=== PATIENT | male | born 1985 | race Two or more races ===

== ENCOUNTER 2024-10-31 15:56 | Emergency (ER) | payer MEDICAID, SELFPAY ==
[2024-10-31 16:11] VITALS: BP 143/101; PULSE 104; RESP 20; TEMP 36.7; O2SAT 98
--- NOTE | 2024-10-31 16:12 | XR_ITS ---
Examination: CT abdomen and pelvis without contrast. Coronal 3-D reconstructions. Sagittal 2-D reconstructions. Date and time of exam:October 31, 2024, 1903 hours INDICATIONS: Left-sided abdominal pain radiating to the flank today CTDI: vol (mGy): 7.41 DLP: (mGycm): 454 Technique: Axial images of the abdomen have been obtained, 3 mm slice thickness Intravenous contrast material has not been administered. Low dose protocols were performed. One or more of the following dose reduction techniques were used; automated exposure control, adjustment of the mA and/or KV according to patient size, use of iterative reconstruction technique. Findings: 2 mm pulmonary nodule left lower lobe image 87 3 mm pulmonary nodule left lower lobe image 40 2 mm pulmonary nodule right middle lobe image 2 No visualized liver or splenic lesion No gallstones No pancreatic or adrenal mass No renal or ureteral calculi, no hydronephrosis Normal appendix Aorta normal size No bowel obstruction No diverticulitis Normal seminal vesicles Normal prostate No bladder mass or bladder calculi Fat-containing left inguinal hernia Intact osseous structures IMPRESSION: Tiny pulmonary nodules as above, likely postinfectious Negative for pancreatitis No renal or ureteral calculi, no hydronephrosis Normal appendix. No bowel obstruction or diverticulitis. No bladder mass or bladder calculi
--- NOTE | 2024-10-31 16:12 | XR_ITS ---
Examination: PA chest single view TECHNIQUE: Upright PA chest single view Date and time: October 31, 2024 1633 hours INDICATIONS: Chest pain shortness of breath today. FINDINGS: Normal heart size Lungs are clear with minor atelectasis left base The osseous structures are intact IMPRESSION: No pneumonia or pulmonary edema
--- NOTE | 2024-10-31 16:14 | PD.EDCHEST ---
ED Chest Pain RME/HPI General Chief Complaint: Chest Pain Stated Complaint: CHEST PAIN, SOB Time Seen by Provider: 10/31/24 16:05 Arrival date/time: 10/31/24 15:56 this is a case of 39-year-old male with no medical history coming in the emergency room with on and off chest pain for 1 month Was seen by PCP test was done and normal worsening of the pain now with abdominal pain nausea vomiting palpitation and shortness of breath thus decided to sought consult here in the emergency room patient denies any diarrhea constipation or blood in stool Limitations: no limitations Related Data Previous Rx's ?Medication ?Instructions ?Recorded famotidine 40 mg tablet 40 mg PO BID 30 days #60 tabs 10/31/24 omeprazole 40 mg capsule,delayed 40 mg PO QDAY 30 days #30 caps 10/31/24 release ondansetron 4 mg disintegrating 4 mg PO Q8H PRN nausea and 10/31/24 tablet vomiting #20 tabs Allergies Allergy/AdvReac Type Severity Reaction Status Date / Time No Known Allergies Allergy Verified 10/31/24 15:59 Review of Systems Review of Systems Systems Reviewed: All systems reviewed, normal except as documented Constitutional Constitutional: Reports system reviewed and no additional complaints, except as documented, Denies chills and Denies fever(s) Cardiovascular Cardiovascular: Reports system reviewed and no additional complaints, except as documented, Reports as per HPI, Denies acrocyanosis, Reports chest pain, Denies chest pain at rest, Denies chest pain with activity, Denies claudication, Denies diaphoresis, Reports dyspnea, Denies dyspnea on exertion, Denies edema, Denies irregular heart rhythm, Denies leg edema, Denies leg ulcers, Denies lightheadedness, Denies orthopnea, Denies palpitations, Denies paroxysmal nocturnal dyspnea, Denies pedal edema, Denies radiating jaw, neck or arm pain, Reports rapid heart rate, Denies slow heart rate and Denies syncope Respiratory Respiratory: Reports system reviewed and no additional complaints, except as documented, Reports as per HPI, Reports dyspnea and Denies dyspnea on exertion Gastrointestinal Gastrointestinal: Reports system reviewed and no additional complaints, except as documented, Reports abdominal pain, Denies diarrhea, Reports nausea and Reports vomiting Genitourinary Genitourinary: Reports system reviewed and no additional complaints, except as documented and Reports as per HPI Musculoskeletal Musculoskeletal: Reports system reviewed and no additional complaints, except as documented and Reports as per HPI Neurologic Neurologic: Reports system reviewed and no additional complaints, except as documented, Reports as per HPI and Denies syncope Endocrine Endocrine: Denies palpitations Past Medical History Social History SMOKING STATUS: Never smoker ED Exam General Limitations: Present no limitations General appearance: Present alert, in no apparent distress and other (Patient is awake alert oriented not in distress nontoxic looking well-hydrated well-nourished) Head Head exam: Present atraumatic, normocephalic and normal inspection Eye Eye exam: Present normal appearance, PERRL and EOMI ENT ENT exam: Present normal exam, normal oropharynx and mucous membranes moist Neck Neck exam: Present normal inspection, full ROM and trachea midline Chest Chest inspection: Present normal inspection and symmetric chest wall rise; Absent tenderness or rash Respiratory Respiratory exam: Present normal lung sounds bilaterally; Absent respiratory distress, wheezes, stridor, accessory muscle use or prolonged expiratory phase Cardiovascular Cardiovascular exam: Present regular rate, normal rhythm and normal heart sounds; Absent bradycardia, tachycardia, irregular rhythm, systolic murmur or diastolic murmur Abdominal Exam Abdominal exam: Present soft, tenderness (Mild tenderness left upper and left lower quadrant no CVA tenderness) and normal bowel sounds; Absent distention, guarding, rebound, rigidity, diminished bowel sounds, hyperactive bowel sounds, hypoactive bowel sounds, organomegaly, psoas sign, obturator sign, Guerrero's sign, Rovsing's sign, tenderness at McBurney's Point or ascites Extremities Exam Extremities exam: Present normal inspection and full ROM Back Exam Back exam: Present normal inspection and full ROM Neurological Exam Neurological exam: Present alert, oriented X3, CN II-XII intact, normal gait and reflexes normal; Absent motor sensory deficit Psychiatric Psychiatric exam: Present normal affect and normal mood Skin Skin exam: Present warm, dry, intact and normal color Course Quality Measures none Orders Category Date Time Status EKG (ED ONLY) *Do not use* NOW Care 10/31/24 16:[address] abdomen pelvis wo con Stat Exams 10/31/24 16:12 Completed EKG (ED Only) Stat Exams 10/31/24 16:07 Ordered XR chest 1V portable Stat Exams 10/31/24 16:12 Completed BNP [B-Type Natriuretic Peptide] Stat Lab 10/31/24 16:19 Completed CBC Stat Lab 10/31/24 16:19 Completed CMP [Comprehensive Metabolic Panel] Stat Lab 10/31/24 16:19 Completed D-Dimer Stat Lab 10/31/24 16:19 Completed Lipase Stat Lab 10/31/24 16:19 Completed Troponin I Stat Lab 10/31/24 16:19 Completed Urinalysis Stat Lab 10/31/24 17:04 Completed Famotidine [Pepcid] Med 10/31/24 19:39 Discontinued 40 mg PO X1 ONE Lidocaine 2% Viscous [Xylocaine 2% Viscous] Med 10/31/24 19:39 Discontinued 15 ml PO X1 ONE Ondansetron Odt [Zofran Odt] Med 10/31/24 19:39 Discontinued 4 mg PO X1 ONE mg Hyd/Al Hyd/Shae Susp [Maalox Susp] Med 10/31/24 19:39 Discontinued 30 ml PO X1 ONE Vital Signs Vital signs: Vital Signs Temperature 98.1 F 10/31/24 16:11 Pulse Rate 104 H 10/31/24 16:11 Respiratory Rate 20 10/31/24 16:11 Blood Pressure 143/101 H 10/31/24 16:11 Pulse Oximetry (%) 98 10/31/24 16:11 Oxygen Delivery Method Room Air 10/31/24 16:11 Patient is afebrile slight tachycardic respiratory rate is 20 not tachypneic BP stable not hypoxic oxygen saturation is 98% Chest Pain MDM Narrative MDM Narrative:: this is a case of 39-year-old male with no medical history coming in the emergency room with on and off chest pain for 1 month Was seen by PCP test was done and normal worsening of the pain now with abdominal pain nausea vomiting palpitation and shortness of breath thus decided to sought consult here in the emergency room patient denies any diarrhea constipation or blood in stool physical examination patient is awake alert oriented not in distress nontoxic looking lung sound is clear no crackles no rales no retraction no stridor heart normal rate regular rhythm no murmur abdominal exam noted mild tenderness on the left upper and left lower quadrant no guarding no rebound no rigidity negative psoas negative straight or negative Rovsing's negative McBurney's negative Guerrero sign negative CVA tenderness patient blood test showed no leukocytosis no anemia kidney and liver function is normal no electrolyte imbalance patient lipase is normal urinalysis is normal patient EKG showed sinus rhythm no ST or T wave abnormality ventricular rate is 84 chest x-ray is normal CT scan of the abdomen showed pulmonary nodule and inguinal hernia at this point patient was treated as gastritis patient was given Zofran and GI cocktail patient was reassessed after 1 hour patient abdominal pain is resolved no recurrence of vomiting patient abdominal exam is benign nonsurgical nontender no guarding no rebound no rigidity at this point I have a long discussion with the patient patient needs to see a 3 specialist patient was advised to see PCP to be referred to camp guard for chest pain for possible echocardiogram stress test and Holter monitor should he also need to see a rag washer for gastritis for possible EGD and hot plate plywood press offbearer for pulmonary nodule to rule out malignancy for any worsening symptoms or any emergent concern he will return the emergency room immediately or call 911 he was prescribed with Zofran for vomiting omeprazole and Pepcid for gastritis patient understood very well the discharge instruction at the time of exam there is no signs and symptoms of cardiopulmonary pathology Patient was discharged with comfortable condition walking with stable gait. Patient verbalized no further complains explained diagnosis and answered patient question. Patient is comfortable with the proposed management plan including the need to follow up with his/her primary care physician and any specialist if applicable Discussed patient for any urgent condition or worsening sx, He/She needed to go to emergency room immediately or call 911. Patient acknowledge the responsibility to follow up as instructed and to monitor her/his symptoms. For any persistence of the symptoms for more than 3-5 days return precaution advised. Discussed the result of the test and was given printed discharge instruction Patient data External records reviewed:: [facility] previous records Clinical information provided by:: patient and family Social determinants that could affect healthcare access:: none Patient has the following chronic illnesses:: None How is presenting disease/condition affected by chronic disease/condition?: no chronic disease Evaluation data The following diagnostics were reviewed and interpreted by me:: lab results and radiology exam(s) Lab and/or radiology exams considered but not ordered:: Reviewed Interpretation Summary: Reviewed Medications / Prescriptions Medications or Prescriptions considered but not ordered:: Given Medication administrations:: Medication Administration History Discontinued Medications Al Hydrox/Mg Hydrox/Simethicone (Mg Hyd/Al Hyd/Shae (Maalox Reg) Susp 30 Ml Udc) 30 ml PO X1 ONE Stop: 10/31/24 19:40 Famotidine (Famotidine 20 Mg Tablet) 40 mg PO X1 ONE Stop: 10/31/24 19:40 Lidocaine HCl (Lidocaine Viscous 2% 15 Ml Udc) 15 ml PO X1 ONE Stop: 10/31/24 19:40 Ondansetron HCl (Ondansetron Odt 4 Mg Tabrap) 4 mg PO X1 ONE; Protocol Stop: 10/31/24 19:40 Given Consultations Consultation(s) initiated? (list below): No Diagnosis Chest Pain Differential Diagnosis: atypical chest pain, costochondritis, chest pain and other (Gastritis) Most likely diagnosis given after review of the tests above:: Chest pain of unknown etiology gastritis Admission Indicated Admission indicated?: not indicated Explain why admission is indicated or not indicated:: Not indicated Admission Request Was there a request for admission?: No Admission Attestation Admission request attestation: Not indicated Disposition Plan Disposition Plan: Discharge Discharge Attestation Discharge Attestation: The patient and all family members were given an opportunity to ask questions and understood the discharge instructions. Discharge instructions specifically effects, indications for sooner follow up or return to the emergency department, and the expected course of current diagnosis. Patient condition: Stable Discharge Plan Plan Patient Disposition: HOME (Self Care) Patient condition on transfer: Stable Prescriptions/Referrals Prescriptions/Med Rec: New famotidine 40 mg tablet 40 mg PO BID 30 Days Qty: 60 0RF ondansetron 4 mg tablet,disintegrating 4 mg PO Q8H PRN (Reason: nausea and vomiting) Qty: 20 0RF omeprazole 40 mg capsule,delayed release(DR/EC) 40 mg PO QDAY 30 Days Qty: 30 0RF Referrals: No Primary/Family,Physician [Primary Care Provider] - In 1 week Problem List Clinical Impression: Chest pain of unknown etiology, Gastritis, Abdominal pain, Pulmonary nodule Patient/Caregiver Discharge Instructions Education Materials: Abdominal Pain, ED Chest Pain, Noncardiac, ED Gastritis (Adult), ED Pulmonary Nodule, Solitary Additional Instructions: Follow-up with your primary care physician in 2 days for reevaluation and to be referred to camp guard for further evaluation and treatment of chest pain for possible echocardiogram stress test and Holter monitor you need to be referred also with Temperature Inspector for gastritis for possible EGD and hot plate plywood press offbearer for your pulmonary nodule to rule out malignancy for any recurrence persistent worsening symptoms or any emergent concern return to the emergency room immediately or call 911 take your medication as directed avoid skipping of meals avoid fatty fried high cholesterol foods avoid spicy food avoid soda coffee or coffee or alcohol keep hydrated take your medication as directed Print Language: Romansh Stand Alone Forms: Darlin Award Info., Patient Portal Info Letter PA/IS SUPPORT ANALYST Supervising Physician PA/IS SUPPORT ANALYST Supervising Physician: Dr howell
[2024-10-31 17:09] LABS: B-Type Natriuretic Peptide < 20 pg/mL (0-100)
[2024-10-31 17:16] LABS: Collection Type, Urine Voided; Squamous Epithelial Cell,Urine 0 /hpf (0-5)
[2024-10-31 17:23] LABS: Alanine Aminotransferase 65 U/L (10-49); Albumin, Serum 5.0 gm/dL (3.5-5.0); Albumin/Globulin Ratio 1.6 (1.2-2.2); Alkaline Phosphatase 50 U/L (46-116); Anion Gap 13 (7-16); Aspartate Amino Transferase 49 U/L (0-34); BUN/Creatinine Ratio 5 Ratio (12-20); Bilirubin,Total 0.9 mg/dL (0.3-1.2); Blood Urea Nitrogen < 5 mg/dL (9-23); Calcium 9.5 mg/dL (8.3-10.6); Calcium (Corrected) 9.5 mg/dL (8.5-10.1); Carbon Dioxide 20.7 mMol/L (20.0-31.0); Chloride 105 mMol/L (98-107); Creatinine (Component) 1.0 mg/dL (0.6-1.3); Globulin 3.1 gm/dL (2.3-3.5); Glucose 140 mg/dL (74-106); Lipase 70 U/L (12-53); Osmolality,Calculated 276 (275-295); Potassium 4.5 mMol/L (3.4-5.1); Sodium 139 mMol/L (136-145); Total Protein 8.1 gm/dL (5.7-8.2); Troponin I < 0.020 ng/mL (0.0-0.045); eGFR > 60 See Note
[2024-10-31 17:30] LABS: Bilirubin,Urine Negative (Negative); Blood,Urine Negative (Negative); Clarity,Urine Clear (Clear/Hazy); Color,Urine Yellow (Lt Yel-Yel); Glucose, Urine Negative (Negative); Ketones,Urine Negative (Negative); Leukocyte Esterase,Urine Negative (Negative); Nitrite,Urine Negative (Negative); PH,Urine 7.0 (5.0-7.0); Protein,Urine Negative (Neg - Trace); RBC,Urine 2 /hpf (0-3); Specific Gravity,Urine 1.024 (1.001-1.035); Urobilinogen,Urine Negative mg/dL (0.0-1.0); WBC,Urine < 1 /hpf (0-5)
[2024-10-31 17:39] LABS: Basophils # (Auto) 0.0 Thou/mm3 (0.0-0.2); Basophils % (Auto) 1 % (0-2.5); Eosinophils # (Auto) 0.2 Thou/mm3 (0.0-0.5); Eosinophils % (Auto) 3 % (0-10); Hematocrit 45.8 % (41.0-53.0); Hemoglobin 16.4 g/dL (13.5-16.0); Immature Granulocytes Auto 0.02 Thou/mm3 (0.00-0.00); Lymphocytes # (Auto) 2.0 Thou/mm3 (1.0-4.8); Lymphocytes % (Auto) 28 % (10-50); Mean Corpuscular HGB Conc 35.8 g/dl (31.0-37.0); Mean Corpuscular Hemoglobin 30.4 pg (25.0-35.0); Mean Corpuscular Volume 85 fL (80-100); Monocytes # (Auto) 0.6 Thou/mm3 (0.0-0.8); Monocytes % (Auto) 8 % (0-12); Neutrophils # (Auto) 4.3 Thou/mm3 (1.8-7.7); Neutrophils % (Auto) 60 % (37-80); Nucleated Red Blood Cell # 0.00 Thou/mm3 (0.00-0.00); Nucleated Red Blood Cell % 0 /100 WBC (0); Platelet Count 141 Thou/mm3 (140-440); RDW Standard Deviation 40.4 fL (35.1-43.9); Red Blood Count 5.40 Miln/mm3 (4.50-5.90); White Blood Count 7.2 Thou/mm3 (3.8-10.6)
[2024-10-31 17:52] VITALS: BP 136/92; PULSE 90; RESP 18; TEMP 36.6; O2SAT 96
[2024-10-31 17:57] LABS: D-Dimer < 250 ng/mL (<600)
[2024-10-31] MEDS: ONDANSETRON ODT 4 MG TABRAP PO (19:56)
[2024-10-31] MEDS: FAMOTIDINE 20 MG TABLET 40 MG PO (19:56)
[2024-10-31] MEDS: MG HYD/AL HYD/SIME (Maalox Reg) SUSP 30 ML UDC PO (19:57)
[2024-10-31] MEDS: LIDOCAINE VISCOUS 2% 15 ML UDC PO (19:57)
[2024-10-31 20:08] VITALS: BP 128/77; PULSE 78; RESP 18; TEMP 36.7; O2SAT 100
== END 2024-10-31 20:09 | disposition home or self-care (01) ==
PROVIDERS: Nurse Practitioner Family; Emergency Provider Emergency Medicine
DX: K29.70 Gastritis, unspecified, without bleeding (principal); R91.1 Solitary pulmonary nodule; R94.31 Abnormal electrocardiogram [ECG] [EKG]
CPT/HCPCS: 36415; 71045; 74176; 80053; 81001; 83690; 83880; 84484; 85025; 85379; 93005; 99284; J3490; Q0162; A9270

== ENCOUNTER 2024-11-22 21:08 | Emergency (ER) | payer MEDICAID, SELFPAY ==
[2024-11-22 21:09] VITALS: BMI 29.0
--- NOTE | 2024-11-22 21:13 | XR_ITS ---
Examination: PA lateral chest 2 views TECHNIQUE: Upright PA lateral chest 2 views Date and time: November 22, 2024 2123 hours INDICATIONS: Coughing and shortness of breath beginning 2 days ago FINDINGS: Normal heart size. The lungs are clear. The osseous structures are intact IMPRESSION: No active disease.
[2024-11-22 21:42] VITALS: BP 150/96; PULSE 83; RESP 20; TEMP 37.6; O2SAT 96
--- NOTE | 2024-11-22 22:04 | EKG_ITS ---
[facility] Test Date: 2024-11-22 Pat Name: JUDSON ZAZUETA Department: Room: - Gender: Male Set Builder: : 1985 Requested By: Ashsih Bae Order Number: [id number] Reading MD: Ashish Bae Measurements Intervals [place] Rate: 90 P: 24 CT: 146 QRS: 9 QRSD: 100 T: 16 QT: 347 QTc: 425 Interpretive Statements SINUS RHYTHM MODERATE VOLTAGE CRITERIA FOR LVH, CONSIDER NORMAL VARIANT [MEETS CRITERIA IN ONE OF: R(aVL), S(V1), R(V5), R(V5/V6)+S(V1)] NONSPECIFIC ST ELEVATION [0.05+ mV ST ELEVATION] No previous ECG available for comparison /store/S0/[id number].pdf
--- NOTE | 2024-11-22 22:23 | EDNOTE_ITS ---
ED Anxiety RME/HPI General Chief Complaint: Shortness of Breath/Dyspnea Stated Complaint: SOB COUGH Time Seen by Provider: 11/22/24 22:04 Arrival date/time: 11/22/24 21:08 39M with history of alcohol and drug use (cocaine several days ago) presents to ED with several weeks of CP, SOB, and cough. Limitations: no limitations Related Data Previous Rx's ?Medication ?Instructions ?Recorded famotidine 40 mg tablet 40 mg PO BID 30 days #60 tab s 10/31/24 omeprazole 40 mg capsule,delayed 40 mg PO QDAY 30 days #30 caps 10/31/24 release ondansetron 4 mg disintegrating 4 mg PO Q8H PRN nausea and 10/31/24 tablet vomiting #20 tabs Allergies Allergy/AdvReac Type Severity Reaction Status Date / Time No Known Allergies Allergy Verified 10/31/24 15:59 Review of Systems Review of Systems Systems Reviewed: All systems reviewed, normal except as documented Constitutional Constitutional: Reports system reviewed and no additional complaints, except as documented, Denies fever(s) and Denies headache(s) ENT Ears, Nose, Mouth, and Throat: Denies disequilibrium and Denies headache(s) Cardiovascular Cardiovascular: Reports system reviewed and no additional complaints, except as documented, Reports as per HPI, Reports chest pain and Reports dyspnea Respiratory Respiratory: Reports system reviewed and no additional complaints, except as documented, Reports as per HPI, Reports cough and Reports dyspnea Gastrointestinal Gastrointestinal: Reports system reviewed and no additional complaints, except as documented, Denies abdominal pain, Denies nausea and Denies vomiting Neurologic Neurologic: Reports system reviewed and no additional complaints, except as documented, Denies confusion, Denies disequilibrium and Denies headache(s) Psychiatric Psychiatric: Denies confusion Past Medical History Social History SMOKING STATUS: Current every day smoker ED Exam General Limitations: Present no limitations General appearance: Present alert and anxious Head Head exam: Present atraumatic Eye Eye exam: Present normal appearance, PERRL and EOMI ENT ENT exam: Present normal exam, normal oropharynx and mucous membranes moist Neck Neck exam: Present normal inspection, full ROM and trachea midline Chest Chest inspection: Present normal inspection and symmetric chest wall rise Respiratory Respiratory exam: Present normal lung sounds bilaterally Cardiovascular Cardiovascular exam: Present regular rate, normal rhythm and normal heart sounds Abdominal Exam Abdominal exam: Present soft and normal bowel sounds Extremities Exam Extremities exam: Present normal inspection and full ROM Back Exam Back exam: Present normal inspection and full ROM Neurological Exam Neurological exam: Present alert, oriented X3 and CN II-XII intact Psychiatric Psychiatric exam: Present normal affect and normal mood Skin Skin exam: Present warm, dry, intact and normal color Course Quality Measures none Orders Category Date Time Status EKG (ED ONLY) *Do not use* NOW Care 11/22/24 22:04 Completed EKG (ED Only) Stat Exams 11/22/24 22:04 Draft XR chest 2V Stat Exams 11/22/24 21:13 Completed Alcohol, Blood Medical Stat Lab 11/22/24 22:04 Ordered CBC Stat Lab 11/22/24 22:04 Ordered CMP [Comprehensive Metabolic Panel] Stat Lab 11/22/24 22:04 Ordered D-Dimer Stat Lab 11/22/24 22:04 Ordered Drug Screen,Urine Stat Lab 11/22/24 22:04 Ordered Troponin I Stat Lab 11/22/24 22:04 Ordered Vital Signs Vital signs: Vital Signs Temperature 99.6 F 11/22/24 21:42 Pulse Rate 83 11/22/24 21:42 Respiratory Rate 20 11/22/24 21:42 Blood Pressure 150/96 H 11/22/24 21:42 Pulse Oximetry (%) 96 11/22/24 21:42 Oxygen Delivery Method Room Air 11/22/24 21:42 Anxiety MDM Narrative MDM Narrative: 39M with history of alcohol and drug use (cocaine several days ago) presents to ED with several weeks of CP, SOB, and cough. Physical exam reveals normal WOB. Patient is afebrile, alert, but very anxious. CXR is unremarkable. EKG is NSR with LVH. Trop and D-dimer normal. Cocaine+. Patient data External records reviewed:: [facility] previous records Clinical information provided by:: patient Social determinants that could affect healthcare access:: substance use Patient has the following chronic illnesses:: alcohol/drugs How is presenting disease/condition affected by chronic disease/condition?: exacerbated by Evaluation data The following diagnostics were reviewed and interpreted by me:: lab results, radiology exam(s) and EKG tracing(s) Lab and/or radiology exams considered but not ordered:: ordered Interpretation Summary: above Medications / Prescriptions Medications or Prescriptions considered but not ordered:: not ordered Medication administrations:: n/a Consultations Consultation(s) initiated? (list below): No Diagnosis Differential diagnosis anxiety: hyperventilation, panic disorder, acute anxiety and other (ACS, PE) Most likely diagnosis given after review of the tests above:: cocaine use, anxiety Admission Indicated Admission indicated?: not indicated Admission Request Was there a request for admission?: No Disposition Plan Disposition Plan: Discharge Discharge Attestation Discharge Attestation: The patient and all family members were given an opportunity to ask questions and understood the discharge instructions. Discharge instructions specifically effects, indications for sooner follow up or return to the emergency department, and the expected course of current diagnosis. Patient condition: Stable Discharge Plan Plan Patient Disposition: HOME (Self Care) Discharge Disposition comment: STable Prescriptions/Referrals Prescriptions/Med Rec: No Action famotidine 40 mg tablet 40 mg PO BID 30 Days Qty: 60 0RF ondansetron 4 mg tablet,disintegrating 4 mg PO Q8H PRN (Reason: nausea and vomiting) Qty: 20 0RF omeprazole 40 mg capsule,delayed release(DR/EC) 40 mg PO QDAY 30 Days Qty: 30 0RF Referrals: No Primary/Family,Physician [Primary Care Provider] - In 1 week Problem List Clinical Impression: Cocaine use, Anxiety Patient/Caregiver Discharge Instructions Education Materials: Your Body's Response to Anxiety, ED Cocaine And Crack Abuse Additional Instructions: Please follow-up with PCP within 24-48 hours and return immediately if symptoms worsen. Stop using drugs. Print Language: Eritrean Stand Alone Forms: Patient Portal Info Letter RAMON/JESSE Supervising Physician RAMON/JESSE Supervising Physician: Dr. Sanders
[2024-11-22 22:30] LABS: Basophils # (Auto) 0.1 Thou/mm3 (0.0-0.2); Basophils % (Auto) 1 % (0-2.5); Eosinophils # (Auto) 0.2 Thou/mm3 (0.0-0.5); Eosinophils % (Auto) 3 % (0-10); Hematocrit 45.1 % (41.0-53.0); Hemoglobin 15.5 g/dL (13.5-16.0); Immature Granulocytes Auto 0.02 Thou/mm3 (0.00-0.00); Lymphocytes # (Auto) 1.7 Thou/mm3 (1.0-4.8); Lymphocytes % (Auto) 24 % (10-50); Mean Corpuscular HGB Conc 34.4 g/dl (31.0-37.0); Mean Corpuscular Hemoglobin 29.9 pg (25.0-35.0); Mean Corpuscular Volume 87 fL (80-100); Monocytes # (Auto) 0.5 Thou/mm3 (0.0-0.8); Monocytes % (Auto) 7 % (0-12); Neutrophils # (Auto) 4.4 Thou/mm3 (1.8-7.7); Neutrophils % (Auto) 65 % (37-80); Nucleated Red Blood Cell # 0.00 Thou/mm3 (0.00-0.00); Nucleated Red Blood Cell % 0 /100 WBC (0); Platelet Count 184 Thou/mm3 (140-440); RDW Standard Deviation 41.0 fL (35.1-43.9); Red Blood Count 5.19 Miln/mm3 (4.50-5.90); White Blood Count 6.8 Thou/mm3 (3.8-10.6)
[2024-11-22 22:48] LABS: D-Dimer < 250 ng/mL (<600)
[2024-11-22 23:26] LABS: Alanine Aminotransferase 37 U/L (10-49); Albumin, Serum 5.0 gm/dL (3.5-5.0); Albumin/Globulin Ratio 1.7 (1.2-2.2); Alcohol, Blood Medical < 3.0 mg/dL (0-10.0); Alkaline Phosphatase 61 U/L (46-116); Anion Gap 10 (7-16); Aspartate Amino Transferase 32 U/L (0-34); BUN/Creatinine Ratio 6 Ratio (12-20); Bilirubin,Total 1.1 mg/dL (0.3-1.2); Blood Urea Nitrogen < 5 mg/dL (9-23); Calcium 10.0 mg/dL (8.3-10.6); Calcium (Corrected) 10.0 mg/dL (8.5-10.1); Carbon Dioxide 25.3 mMol/L (20.0-31.0); Chloride 103 mMol/L (98-107); Creatinine (Component) 0.9 mg/dL (0.6-1.3); Estimated Creatinine Clearance 111.7 mL/min (>60); Globulin 3.0 gm/dL (2.3-3.5); Glucose 213 mg/dL (74-106); Osmolality,Calculated 278 (275-295); Potassium 4.1 mMol/L (3.4-5.1); Sodium 138 mMol/L (136-145); Total Protein 8.0 gm/dL (5.7-8.2); Troponin I < 0.020 ng/mL (0.0-0.045); eGFR > 60 See Note
[2024-11-22 23:26] LABS: Amphetamine/Methamp Scrn,U Negative (Negative); Barbiturate Screen,Urine Negative (Negative); Benzodiazepines Screen,Urine Negative (Negative); Benzoylecgonine Screen, Ur Positive (Negative); Fentanyl Screen,Urine Negative (Negative); Opiate Screen,Urine Negative (Negative); THC Screen,Urine Negative (Negative)
== END 2024-11-23 00:22 | disposition home or self-care (01) ==
PROVIDERS: Physician Assistant; Emergency Provider Emergency Medicine
DX: F14.980 Cocaine use, unspecified with cocaine-induced anxiety disorder (principal); R05.9 Cough, unspecified; R06.02 Shortness of breath; R94.31 Abnormal electrocardiogram [ECG] [EKG]
CPT/HCPCS: 36415; 71046; 80053; 80307; 80320; 84484; 85025; 85379; 93005; 99283; G0480

== ENCOUNTER 2024-11-24 22:45 | Emergency (ER) | payer MEDICAID, SELFPAY ==
[2024-11-24 22:48] VITALS: BMI 29.8
--- NOTE | 2024-11-24 22:56 | XR_ITS ---
Examination: CT abdomen and pelvis without contrast. Coronal 3-D reconstructions. Sagittal 2-D reconstructions. Date and time of exam:November 24, 2024 1136 hours INDICATIONS: Abdominal pain and blood in the stool today CTDI: vol (mGy): 7.44 DLP: (mGycm): 449 Technique: Axial images of the abdomen have been obtained, 3 mm slice thickness Intravenous contrast material has not been administered. Low dose protocols were performed. One or more of the following dose reduction techniques were used; automated exposure control, adjustment of the mA and/or KV according to patient size, use of iterative reconstruction technique. Findings: No focal liver or splenic lesions Contracted gallbladder No pancreatic mass No renal or ureteral calculi, no hydronephrosis Aorta normal size No pericecal inflammatory change No nonspecific colitis or enteritis pattern Urinary bladder intact No rectal wall thickening Fat-containing left inguinal hernia Osseous structures are intact IMPRESSION: No renal or ureteral calculi, no hydronephrosis No CT findings of appendicitis bowel obstruction or diverticulitis
[2024-11-24 23:02] VITALS: BP 160/116; BP 163/119; PULSE 99; RESP 19; TEMP 37.2; O2SAT 97
[2024-11-24] MEDS: ONDANSETRON ODT 4 MG TABRAP PO (23:07)
[2024-11-24] MEDS: ACETAMINOPHEN w/COD 300-30 TABLET 2 TAB PO (23:07)
[2024-11-24 23:24] VITALS: BP 160/116; PULSE 99
[2024-11-25 01:01] LABS: Alanine Aminotransferase 105 U/L (10-49); Albumin, Serum 5.0 gm/dL (3.5-5.0); Albumin/Globulin Ratio 1.9 (1.2-2.2); Alkaline Phosphatase 58 U/L (46-116); Amylase 88 U/L (30-118); Anion Gap 11 (7-16); Aspartate Amino Transferase 68 U/L (0-34); BUN/Creatinine Ratio 9 Ratio (12-20); Bilirubin,Direct 0.2 mg/dL (0.0-0.3); Bilirubin,Total 0.7 mg/dL (0.3-1.2); Blood Urea Nitrogen 9 mg/dL (9-23); Calcium 9.4 mg/dL (8.3-10.6); Calcium (Corrected) 9.4 mg/dL (8.5-10.1); Carbon Dioxide 27.4 mMol/L (20.0-31.0); Chloride 101 mMol/L (98-107); Creatinine (Component) 1.0 mg/dL (0.6-1.3); Estimated Creatinine Clearance 101.8 mL/min (>60); Globulin 2.7 gm/dL (2.3-3.5); Glucose 127 mg/dL (74-106); Lipase 95 U/L (12-53); Magnesium 1.2 mg/dL (1.6-2.6); Osmolality,Calculated 278 (275-295); Potassium 3.4 mMol/L (3.4-5.1); Sodium 139 mMol/L (136-145); Total Protein 7.7 gm/dL (5.7-8.2); eGFR > 60 See Note
[2024-11-25 01:07] LABS: Basophils # (Auto) 0.1 Thou/mm3 (0.0-0.2); Basophils % (Auto) 1 % (0-2.5); Eosinophils # (Auto) 0.2 Thou/mm3 (0.0-0.5); Eosinophils % (Auto) 3 % (0-10); Hematocrit 44.1 % (41.0-53.0); Hemoglobin 15.0 g/dL (13.5-16.0); Immature Granulocytes Auto 0.03 Thou/mm3 (0.00-0.00); Lymphocytes # (Auto) 1.7 Thou/mm3 (1.0-4.8); Lymphocytes % (Auto) 23 % (10-50); Mean Corpuscular HGB Conc 34.0 g/dl (31.0-37.0); Mean Corpuscular Hemoglobin 29.7 pg (25.0-35.0); Mean Corpuscular Volume 87 fL (80-100); Monocytes # (Auto) 0.5 Thou/mm3 (0.0-0.8); Monocytes % (Auto) 7 % (0-12); Neutrophils # (Auto) 4.8 Thou/mm3 (1.8-7.7); Neutrophils % (Auto) 66 % (37-80); Nucleated Red Blood Cell # 0.00 Thou/mm3 (0.00-0.00); Nucleated Red Blood Cell % 0 /100 WBC (0); Platelet Count 147 Thou/mm3 (140-440); RDW Standard Deviation 41.2 fL (35.1-43.9); Red Blood Count 5.05 Miln/mm3 (4.50-5.90); White Blood Count 7.3 Thou/mm3 (3.8-10.6)
[2024-11-25 01:13] VITALS: BP 124/87; PULSE 93; RESP 18; TEMP 37.3; O2SAT 98
--- NOTE | 2024-11-25 02:08 | XR_ITS ---
Examination: Abdomen sonogram, Limited Date and time of exam: November 25, 2024, 0210 hours INDICATIONS: Epigastric tenderness beginning 2 days ago Technique: Real-time valle scale transabdominal sonographic images of the upper abdomen obtained. Findings: Normal gallbladder. Normal common bile duct 0.4 cm Pancreas obscured by bowel gas. Liver 16.3 cm fatty infiltration no focal liver lesions. Normal hepatopedal portal venous flow. Patent IVC. IMPRESSION: Normal gallbladder. Normal common bile duct.
[2024-11-25] MEDS: MAGNESIUM OXIDE 400 MG TABLET 800 MG PO (02:25)
[2024-11-25] MEDS: POTASSIUM CHLORIDE 10% 20 MEQ/15 ML UDC 40 MEQ PO (02:26)
--- NOTE | 2024-11-25 03:15 | EDNOTE_ITS ---
ED Abdominal Pain RME/HPI General Chief Complaint: Abdominal Pain Stated complaint: ABD PAIN BLOOD IN STOOL Time seen by provider: 11/24/24 23:10 Arrival date/time: 11/24/24 22:45 RME / HPI RME / HPI narrative: This section includes all my notes and documentations, including HPI, PE, and ED course. Rolo Perez MD HPI: 39 y/o male presents with mild abdominal pain, rectal pain, constipation, and bright red blood when wiping for a couple of weeks. Patient states he has been dealing with the symptom intermittently for approximately 2 years. Denies diarrhea. No other complaints. ROS: All negative except as documented in HPI. Physical Exam: General: Alert and oriented. No acute distress when remaining still. High BP noted. Eyes: Conjunctivae and lids clear. ENT: No nasal congestion. Neck: Supple. Heart: RRR. Lungs: No respiratory distress. Good air movement. No rhonchi, wheezing, rales. Abdomen: Soft and nontender. Normal bowel sounds. No distension. No rebound or guarding. Skin: Warm and dry. Neuro: Alert and oriented X 3. Rectal: External hemorrhoids (not thrombosed) noted, varying in size. Digital exam unremarkable. I reviewed all diagnostic test results: My review of the Gall Bladder US report is NAD. My review of the Abdomen/Pelvis CT report is: NAD. Blood tests remarkable for K 3.4 and Mg 1.2. Covid/Influenza: Negative. At this point, diagnoses include: Hemorrhoids, Elevated BP, Hypokalemia, Hypomagnesemia Treatment here included: Oral KCl 40 meq, Zofran ODT 4 mg, two Tylenol w/ Codeine #3, oral clonidine 0.2 mg, and oral magnesium oxide 800 mg. Some improvement noted. Recommended more outpatient care. Based on my best medical judgment, made decision no further evaluation or treatment indicated at this time. Patient understands and agrees to the discharge instructions customized and printed, see below. Discharge instructions from Dr. Perez: 1. After evaluation, your symptoms are due to hemorrhoids.? See attached handout. Hemorrhoids are swollen rectal veins from pushing too hard during bowel movements. --Use Anusol suppositories as prescribed to help heal your hemorrhoids. ?During bowel movements, avoid pushing too hard. ?To help prevent hard stools, increase oral fluid and maintain clear urine (if dark or yellow, increase oral fluid).? And increase every day exercising and eating fresh fruits and fresh vegetables. And take Colace, stool softener, as prescribed. ?Sitz bath in warm water and Epsom salt for 15 minute 2 times daily until your hemorrhoids heal. --Apply lidocaine ointment for pain, as prescribed. 2. For low potassium level, eat banana daily and other potassium rich food/beverages. 3. For low magnesium level, take magnesium pills as prescribed. And increase food rich in magnesium. Such as green and leafy vegetables and peanuts and almonds and cashews. 4. See a private doctor on 11/26/2024 for recheck and further care. Ask to review all test results and official radiology reports, to make sure you receive all necessary follow-ups and monitoring, including repeat potassium and magnesium levels. Ask to recheck your BP and help if still elevated. To make sure there is no serious intra-abdominal condition, ask for help with mo re investigation not available here in the ER. Such as EGD or scoping the stomach, colonoscopy or scoping the colon, and referral to see craft coordinator. 5. Seek immediate medical care with worsening or with any concerns. Rolo Perez MD Related Data Previous Rx's ?Medication ?Instructions ?Recorded famotidine 40 mg tablet 40 mg PO BID 30 days #60 tab s 10/31/24 omeprazole 40 mg capsule,delayed 40 mg PO QDAY 30 days #30 caps 10/31/24 release ondansetron 4 mg disintegrating 4 mg PO Q8H PRN nausea and 10/31/24 tablet vomiting #20 tabs docusate sodium 100 mg capsule 100 mg PO BID #60 caps 11/25/24 (Colace) hydrocortisone acetate 25 mg 25 mg MI BID 14 days #28 ea 11/25/24 rectal suppository (Anusol-HC) lidocaine 5 % topical ointment 1 applic topical QID MI N pain #50 11/25/24 grams magnesium oxide 400 mg PO BID #30 tabs 11/25 Allergies Allergy/AdvReac Type Severity Reaction Status Date / Time No Known Allergies Allergy Verified 11/24/24 22:55 Review of Systems Review of Systems Systems Reviewed: All systems reviewed, normal except as documented Past Medical History Past Medical History GASTROINTESTINAL: Positive Hemorrhoids Social History SMOKING STATUS: Never smoker ED Exam Narrative Physical exam: Refer to HPI above Course Quality Measures none Orders Category Date Time Status Bedside COVID-19 Antigen Test NOW Care 11/24/24 22:53 Active Bedside Influenza A&B Antigen Test NOW Care 11/24/24 22:[address] abdomen pelvis wo con Stat Exams 11/24/24 22:56 Completed US gall bladder Stat Exams 11/25/24 02:08 Taken Amylase Stat Lab 11/24/24 22:56 Completed Bilirubin,Direct Stat Lab 11/24/24 22:56 Completed CBC Stat Lab 11/24/24 22:56 Completed CMP [Comprehensive Metabolic Panel] Stat Lab 11/24/24 22:56 Completed Lipase Stat Lab 11/24/24 22:56 Completed Magnesium Stat Lab 11/24/24 22:56 Completed ACETAMINOPHEN w/COD 300-30 [Tylenol w/Cod #3] Med 11/24/24 22:55 Discontinued 2 tab PO X1 ONE KCL 10% Liq UDC 15 ML Med 11/25/24 01:27 Discontinued 40 meq PO X1 ONE Magnesium Oxide [Mag-Ox 400] Med 11/25/24 01:27 Discontinued 800 mg PO X1 ONE Ondansetron Odt [Zofran Odt] Med 11/24/24 22:55 Discontinued 4 mg PO X1 ONE cloNIDine HCL [Catapres] Med 11/24/24 23:10 Discontinued 0.2 mg PO X1 ONE Vital Signs Vital signs: Vital Signs Temperature 98.9 F 11/24/24 23:02 Pulse Rate 99 11/24/24 23:02 Respiratory Rate 19 11/24/24 23:02 Blood Pressure 160/116 H 11/24/24 23:02 Pulse Oximetry (%) 97 11/24/24 23:02 Oxygen Delivery Method Room Air 11/24/24 23:02 Abdominal Pain MDM MDM Narrative MDM Narrative:: Scribe Attestation: I, Berkley Moreira, am scribing for and in the presence of Dr. Perez. Provider Notation: Although this document has been carefully reviewed, there may still be some phonetic and other typographical errors.? These errors are purely grammatical due to imperfections in the software program and should not be construed in any way to? compromise the substance of the patient's medical care during this visit. 39 y/o male presents with mild abdominal pain, rectal pain, constipation, and bright red blood when wiping for a couple of weeks. Patient states he has been dealing with the symptom intermittently for approximately 2 years. Denies diarrhea. No other complaints. Patient data External records reviewed:: [facility] previous records (Reviewed prior ED records from 11/22/24. Patient was seen for Anxiety.) Clinical information provided by:: patient Social determinants that could affect healthcare access:: none Patient has the following chronic illnesses:: None reported How is presenting disease/condition affected by chronic disease/condition?: no chronic disease Evaluation data The following diagnostics were reviewed and interpreted by me:: lab results and radiology exam(s) Lab and/or radiology exams considered but not ordered:: None Interpretation Summary: I reviewed all diagnostic test results: My review of the Gall Bladder US report is NAD. My review of the Abdomen/Pelvis CT report is: NAD. Blood tests remarkable for K 3.4 and Mg 1.2. Covid/Influenza: Negative. Medications / Prescriptions Medications or Prescriptions considered but not ordered:: None Medication administrations:: Medication Administration History Discontinued Medications Acetaminophen/Codeine Phosphate (Acetaminophen W/Cod 300-30 Tablet) 2 tab PO X1 ONE Stop: 11/24/24 22:56 Last Admin: 11/24/24 23:07 Dose: 2 tab Documented By: JAMES Clonidine (Clonidine Hcl 0.1 Mg Tablet) 0.2 mg PO X1 ONE Stop: 11/24/24 23:11 Last Admin: 11/24/24 23:24 Dose: 0.2 mg Documented By: JAMES Magnesium Oxide (Magnesium Oxide 400 Mg Tablet) 800 mg PO X1 ONE Stop: 11/25/24 01:28 Last Admin: 11/25/24 02:25 Dose: 800 mg Documented By: MARJORIE Ondansetron HCl (Ondansetron Odt 4 Mg Tabrap) 4 mg PO X1 ONE; Protocol Stop: 11/24/24 22:56 Last Admin: 11/24/24 23:07 Dose: 4 mg Documented By: JAMES Potassium Chloride (Potassium Chloride 10% 20 Meq/15 Ml Udc) 40 meq PO X1 ONE Stop: 11/25/24 01:28 Last Admin: 11/25/24 02:26 Dose: 40 meq Documented By: MARJORIE Treatment here included: Oral KCl 40 meq, Zofran ODT 4 mg, two Tylenol w/ Codeine #3, oral clonidine 0.2 mg, and oral magnesium oxide 800 mg. Consultations Consultation(s) initiated? (list below): No Diagnosis Differential diagnosis abdominal pain: abdominal pain, acute appendicitis, constipation, diverticulitis, gastroenteritis, pancreatitis, small bowel obstruction and other (Cholelithiasis, Cholecystitis, hemorrhoids) Most likely diagnosis given after review of the tests above:: Hemorrhoids, Elevated BP, Hypokalemia, Hypomagnesemia Admission Indicated Admission indicated?: not indicated Explain why admission is indicated or not indicated:: With significant improvement and no condition needing emergent intervention, there was no indication for admission. Admission Request Was there a request for admission?: No Disposition Plan Disposition Plan: Discharge Discharge Attestation Discharge Attestation: The patient and all family members were given an opportunity to ask questions and understood the discharge instructions. Discharge instructions specifically effects, indications for sooner follow up or return to the emergency department, and the expected course of current diagnosis. Patient condition: Stable Discharge Plan Plan Patient Disposition: HOME (Self Care) Prescriptions/Referrals Prescriptions/Med Rec: New hydrocortisone acetate [Anusol-HC] 25 mg suppository 25 mg MI BID 14 Days Qty: 28 0RF magnesium oxide 400 mg magnesium tablet 400 mg PO BID Qty: 30 1RF lidocaine 5 % ointment 1 applic topical QID PRN (Reason: pain) Qty: 50 1RF docusate sodium [Colace] 100 mg capsule 100 mg PO BID Qty: 60 0RF No Action famotidine 40 mg tablet 40 mg PO BID 30 Days Qty: 60 0RF ondansetron 4 mg tablet,disintegrating 4 mg PO Q8H PRN (Reason: nausea and vomiting) Qty: 20 0RF omeprazole 40 mg capsule,delayed release(DR/EC) 40 mg PO QDAY 30 Days Qty: 30 0RF Referrals: No Primary/Family,Physician [Primary Care Provider] - In 1 week Problem List Clinical Impression: Hemorrhoids, Hypokalemia, Hypomagnesemia, Elevated BP without diagnosis of hypertension Patient/Caregiver Discharge Instructions Discharge Activity: activity as tolerated Education Materials: Magnesium (Blood), ED Hemorrhoids, ED Hypertension, To Be Confirmed, ED Hypokalemia Additional Instructions: Discharge instructions from Dr. Perez: 1. After evaluation, your symptoms are due to hemorrhoids.? See attached handout. Hemorrhoids are swollen rectal veins from pushing too hard during bowel move ments. --Use Anusol suppositories as prescribed to help heal your hemorrhoids. ?During bowel movements, avoid pushing too hard. ?To help prevent hard stools, increase oral fluid and maintain clear urine (if dark or yellow, increase oral fluid).? And increase every day exercising and eating fresh fruits and fresh vegetables. And take Colace, stool softener, as prescribed. ?Sitz bath in warm water and Epsom salt for 15 minute 2 times daily until your hemorrhoids heal. --Apply lidocaine ointment for pain, as prescribed. 2. For low potassium level, eat banana daily and other potassium rich food/b everages. 3. For low magnesium level, take magnesium pills as prescribed. And increase food rich in magnesium. Such as green and leafy vegetables and peanuts and almonds and cashews. 4. See a private doctor on 11/26/2024 for recheck and further care. Ask to review all test results and official radiology reports, to make sure you receive all necessary follow-ups and monitoring, including repeat potassium and magnesium levels. Ask to recheck your BP and help if still elevated. To make sure there is no serious intra-abdominal condition, ask for help with more investigation not available here in the ER. Such as EGD or scoping the stomach, colonoscopy or scoping the colon, and referral to see craft coordinator. 5. Seek immediate medical care with worsening or with any concerns. Instrucciones de jabari del Dr. Perez: 1. Despu?s de la evaluaci?n, shola s?ntomas se deben a hemorroides. Consulte el folleto adjunto. Las hemorroides son venas rectales inflamadas por la presi?n excesiva al defecar. --Use los supositorios Anusol seg?n lo recetado para ayudar a sanar las hemorroides. --Luiz las deposiciones, evite presionar con demasiada fuerza. --Para ayudar a prevenir las heces duras, aumente la cantidad de l?quido oral y mantenga la orina za (si es oscura o amarilla, aumente la cantidad de l?quido oral). Aumente el ejercicio diario y consuma frutas y verduras frescas. Y tome Colace, un ablandador de heces, seg?n lo recetado. --Ba?o de asiento con agua tibia y sales de Epsom luiz 15 minutos, 2 veces al d?a, hasta que las hemorroides sanen. --Aplique delon?ento de lidoca?na para el dolor, seg?n lo recetado. 2. Si tiene un nivel bajo de potasio, consuma pl?tanos a diario y otros alimentos o bebidas ricos en potasio. 3. Si tiene un nivel bajo de magnesio, tome las pastillas de magnesio seg?n lo prescrito. Y aumente el consumo de alimentos ricos en magnesio, jose e verduras de hoja taylor, cacahuetes, almendras y anacardos. 4. Consulte con un m?dico particular el 07/31/2024 para erny nueva revisi?n y atenci?n adicional. Solicite la revisi?n de todos los resultados de las pruebas y los informes radiol?gicos oficiales para asegurarse de recibir todos los seguimientos y la monitorizaci?n necesarios, incluyendo la repetici?n de los niveles de potasio y magnesio. Solicite que le vuelvan a controlar la presi?n arterial y que le ayuden si sigue elevada. Para asegurarse de que no haya reny afecci?n intraabdominal grave, solicite ayuda con otras pruebas que no est?n disponibles en urgencias, jose e reny endoscopia estomacal (EGD) o reny endoscopia g?strica, reny colonoscopia o reny endoscopia de colon, y la derivaci?n a un gastroenter?logo. 5. Busque atenci?n m?dica inmediata si presenta empeoramiento o si tiene alguna inquietud. Print Language: [place] Stand Alone Forms: [employer] Award Info., Patient Portal Info Letter
--- NOTE | 2024-11-25 04:24 | PRELIM_ITS ---
Right upper quadrant abdominal ultrasound with Doppler and wave Doppler spectral analysis. November 25, 2024 at 0210 hours Clinical history: Epigastric tenderness. Technique: Grayscale and color flow images of the right upper quadrant are provided. Hepatic and portal veins were also imaged with color flow images. Comparison: No prior study is available for comparison. Findings: The liver is enlarged and demonstrates increased echogenicity. No intrahepatic biliary ductal dilatation. No gallbladder calculus, wall thickening or pericholecystic fluid is demonstrated. The common bile duct is normal in caliber at 4.0 mm. The pancreas is unremarkable to the extent visualized. The imaged portions of the right kidney are within normal limits. The portal vein is patent with normal wave Doppler spectral analysis. Guerrero sign is not available at the time of this report. Impression: Hepatomegaly associated with liver steatosis, suspicious for steatohepatitis. No evidence of cholecystitis. Report Electronically Signed By: Sourav Raya 11/25/2024 4:24:12 AM [EST]
== END 2024-11-25 04:25 | disposition home or self-care (01) ==
PROVIDERS: Emergency Provider Emergency Medicine
DX: E83.42 Hypomagnesemia (principal); E87.6 Hypokalemia; K64.4 Residual hemorrhoidal skin tags; K92.1 Melena; R03.0 Elevated blood-pressure reading, without diagnosis of hypertension; R10.816 Epigastric abdominal tenderness
CPT/HCPCS: 36415; 74176; 76705; 80053; 82150; 82248; 83690; 83735; 85025; 87400; 87811; 99283; Q0162; A9270